=== PATIENT | male | born 1970 | race Two or more races ===

== ENCOUNTER 2024-08-12 09:16 | Emergency (ER) | payer OTHER ==
[~2024-08-12] VITALS: Ht 177.8 cm; Wt 74.8 kg
[2024-08-12 09:27] VITALS: BP 109/69; O2SAT 98
[2024-08-12] MEDS ORDERED: KETOROLAC TROMETHAMINE 30 MG VIAL IM ONE (10:45)
== END 2024-08-12 13:41 | disposition home or self-care (01) ==
LOC: ER 09:16
DX: S92.912A Unspecified fracture of left toe(s), initial encounter for closed fracture (principal); W22.8XXA Striking against or struck by other objects, initial encounter; Y93.B9 Activity, other involving muscle strengthening exercises; Y92.39 Other specified sports and athletic area as the place of occurrence of the external cause

== ENCOUNTER 2024-08-20 08:26 | Outpatient (CLI) | payer OTHER | END 2024-08-20 08:28 | disposition home or self-care (01) | LOC: RAD 08:26 | PROVIDERS: ATTEND Orthopaedic Surgery | DX: M79.672 Pain in left foot (principal) ==